=== PATIENT | male | born 1990 | race Caucasian/White ===

== ENCOUNTER 2018-07-20 19:42 | Inpatient (IN) | payer BC, OTHER ==
[~2018-07-20] VITALS: Ht 182.9 cm; Wt 119.7 kg
[~2018-07-20 19:42] MED LIST: ACYC-57 PO; AZIT500V2 PO; HYDR-3653 PO; IBUP-1222 PO; ONDA4TAB10 PO
--- NOTE | 2018-07-20 20:20 | NUR ---
ASSUMED CARE OF PT. PT PRESENTS TO ED WITH C/O SEVERE NECK PAIN, GENERALIZED BODY ACHES, AND SOME NAUSEA STARTING YESTERDAY. PT STATES HISTORY MENINGITIS IN 2014 AND STATES SYMPTOMS FEEL SIMILAR. MILD AMOUNT OF DISCOMFORT AND DISTRESS NOTED. BREATHING REGULAR AND UNLABORED. POC DISCUSSED. PT AGREEABLE.
[2018-07-20 20:25] LABS: BASOPHILS # (AUTO) 0.05 x10^3/uL (0-0.1); BASOPHILS % (AUTO) 0 % (0-1); EOSINOPHILS # (AUTO) 0.14 x10^3/uL (0-0.4); EOSINOPHILS % (AUTO) 1 % (1-7); LYMPHOCYTES % (AUTO) 26 % (22-44); MD NO; MEAN CORPUSCULAR HEMOGLOBIN 31.3 pg (27.5-34.5); MEAN CORPUSCULAR HGB CONC 34.5 g/dL (33.2-36.2); MEAN CORPUSCULAR VOLUME 90.5 fL (81-97); MONOCYTES # (AUTO) 0.74 x10^3/uL (0.2-0.8); MONOCYTES % (AUTO) 6 % (2-9); NEUTROPHILS # (AUTO) 7.67 x10^3/uL (1.8-6.8); NEUTROPHILS % (AUTO) 66 % (42-75); PLATELET COUNT 246 x10^3/uL (130-400); RED BLOOD COUNT 5.37 x10^6/uL (4.38-5.82); RED CELL DISTRIBUTION WIDTH 12.7 % (9.4-14.8)
[2018-07-20] MEDS ORDERED: SODIUM CHLORIDE FLUSH 10ML SYR IVF ONE (20:30)
[2018-07-20] MEDS ORDERED: ONDANSETRON 2MG/ML, 2ML IVPush ONE (20:30)
[2018-07-20 20:34] LABS: ALANINE AMINOTRANSFERASE 72 U/L (12-78); ANION GAP 8 mmol/L (5-15); CHLORIDE 109 mmol/L (98-107); CREATININE 0.92 mg/dL (0.7-1.3)
[2018-07-20 20:38] LABS: ALKALINE PHOSPHATASE 71 U/L (45-117); BILIRUBIN,TOTAL 0.3 mg/dL (0.2-1.0); TOTAL PROTEIN 7.9 g/dL (6.4-8.2); TROPONIN I < 0.015 ng/mL (0.000-0.045)
--- NOTE | 2018-07-20 20:48 | NUR ---
TIME CLERK STUDENT UNABLE TO START IV. PT TO CT VIA GURNEY. IV TO BE STARTED AFTER.
[2018-07-20] MEDS ORDERED: MORPHINE SULFATE 4 MG/ML, 1ML ONE ×2 (21:14→22:34)
[2018-07-20] MEDS ORDERED: ONDANSETRON 2MG/ML, 2ML ONE (21:14)
[2018-07-20] MEDS ORDERED: LIDOCAINE-MPF 1%, 5ML ONE (21:15)
[2018-07-20] MEDS: MORPHINE SULFATE 4 MG/ML, 1ML IVPush PRN ×2 (21:17→22:38)
--- NOTE | 2018-07-20 21:31 | NUR ---
CONSENT OBTAINED FROM PT FOR LUMBAR PUNCTURE DUE TO HISTORY OF MENINGITIS AND SYMPTOMS. PT TOLERATED PROCEDURE WELL. PT VSS AND NOW LAYNIG FLAT.
[2018-07-20 22:05] LABS: GLUCOSE, CSF 43 mg/dL (40-80)
[2018-07-20 22:10] LABS: TOTAL PROTEIN,CSF 91 mg/dL (15-45)
[2018-07-20] MEDS ORDERED: SODIUM CHLORIDE 0.9% IV SCH (22:30)
[2018-07-20] MEDS ORDERED: CEFTRIAXONE PMX 2GM/50ML 50 ML IV SCH (22:30)
[2018-07-20] MEDS ORDERED: VANCOMYCIN PER PHARMACY MC PRN ×2 (22:30→23:30)
[2018-07-20] MEDS ORDERED: ACYCLOVIR IV SCH (22:30)
[2018-07-20] MEDS ORDERED: CEFTRIAXONE PMX 2GM/50ML 50 ML ONE (22:42)
[2018-07-20] MEDS ORDERED: VANCOMYCIN 2,500 MG in SODIUM CHLORIDE 0.9% 500 ML IV ONE (23:00)
[2018-07-20] MEDS ORDERED: POLYETHYLENE GLYCOL 17 GM PACKET PO PRN (23:30)
[2018-07-20] MEDS ORDERED: ONDANSETRON ODT 4 MG PO PRN (23:30)
[2018-07-20] MEDS ORDERED: BISACODYL 10 MG SUPP PR PRN (23:30)
[2018-07-21] MEDS: SODIUM CHLORIDE FLUSH 10ML SYR IVF SCH ×3 (00:13→21:22)
[2018-07-21 00:20] VITALS: BP 136/87
[2018-07-21] MEDS: ACETAMINOPHEN 325 MG TABLET PO PRN ×3 (01:09→21:57)
[2018-07-21] MEDS: SODIUM CHLORIDE 0.9% IV SCH ×3 (01:11→18:13)
[2018-07-21] MEDS: ACYCLOVIR IV SCH ×3 (01:11→18:13)
[2018-07-21 01:30] LABS: MICROSCOPIC NOT IND
[2018-07-21 01:33] LABS: CULTURE INDICATED? NO
[2018-07-21 05:06] LABS: BASOPHILS # (AUTO) 0.03 x10^3/uL (0-0.1); BASOPHILS % (AUTO) 0 % (0-1); EOSINOPHILS # (AUTO) 0.07 x10^3/uL (0-0.4); EOSINOPHILS % (AUTO) 1 % (1-7); LYMPHOCYTES # (AUTO) 3.09 x10^3/uL (1-3.4); LYMPHOCYTES % (AUTO) 26 % (22-44); MD NO; MEAN CORPUSCULAR HEMOGLOBIN 31.2 pg (27.5-34.5); MEAN CORPUSCULAR HGB CONC 34.6 g/dL (33.2-36.2); MEAN CORPUSCULAR VOLUME 90.2 fL (81-97); MEAN PLATELET VOLUME 8.8 fL (7.4-10.4); MONOCYTES # (AUTO) 0.67 x10^3/uL (0.2-0.8); MONOCYTES % (AUTO) 6 % (2-9); NEUTROPHILS % (AUTO) 68 % (42-75); PLATELET COUNT 228 x10^3/uL (130-400); RED BLOOD COUNT 5.05 x10^6/uL (4.38-5.82); RED CELL DISTRIBUTION WIDTH 12.8 % (9.4-14.8)
[2018-07-21 05:14] LABS: ALBUMIN 3.5 g/dL (3.4-5.0); ANION GAP 6 mmol/L (5-15); CALCIUM 8.5 mg/dL (8.5-10.1); CHLORIDE 110 mmol/L (98-107)
[2018-07-21 05:19] LABS: ALANINE AMINOTRANSFERASE 61 U/L (12-78); ALKALINE PHOSPHATASE 62 U/L (45-117); BILIRUBIN,TOTAL 0.5 mg/dL (0.2-1.0); CREATININE 0.82 mg/dL (0.7-1.3); TOTAL PROTEIN 7.4 g/dL (6.4-8.2)
[2018-07-21] MEDS ORDERED: PHARMACOKINETIC CONSULTATION MC ONE (05:30)
[2018-07-21] MEDS ORDERED: PHARMACOKINETIC MONITORING MC PRN (05:30)
[2018-07-21] MEDS ORDERED: VANCOMYCIN 1,800 MG in SODIUM CHLORIDE 0.9% 250 ML IV SCH (08:00)
[2018-07-21] MEDS: SENNA/DOCUSATE TABLET PO SCH (08:27)
[2018-07-21 08:59] VITALS: BP 126/80
[2018-07-21] MEDS ORDERED: CEFTRIAXONE PMX 2GM/50ML 50 ML IV SCH (11:00)
[2018-07-21 15:28] VITALS: BP 129/75
[2018-07-21 21:51] VITALS: BP 149/102
[2018-07-21 22:49] VITALS: BP 155/106
[2018-07-21] MEDS ORDERED: ENALAPRILAT 1.25 MG/ML, 2ML IV ONE (23:00)
[2018-07-21 23:53] VITALS: BP 120/76
[2018-07-22] MEDS: ACYCLOVIR IV SCH ×3 (01:54→18:11)
[2018-07-22] MEDS: SODIUM CHLORIDE 0.9% IV SCH ×3 (01:54→18:11)
[2018-07-22 02:52] VITALS: BP 108/70
[2018-07-22 06:02] LABS: MEAN CORPUSCULAR HEMOGLOBIN 31.3 pg (27.5-34.5); MEAN CORPUSCULAR HGB CONC 34.7 g/dL (33.2-36.2); MEAN CORPUSCULAR VOLUME 90.1 fL (81-97); MEAN PLATELET VOLUME 8.8 fL (7.4-10.4); PLATELET COUNT 210 x10^3/uL (130-400); RED BLOOD COUNT 4.91 x10^6/uL (4.38-5.82); RED CELL DISTRIBUTION WIDTH 12.7 % (9.4-14.8)
[2018-07-22 06:07] LABS: ALBUMIN 3.4 g/dL (3.4-5.0); ANION GAP 4 mmol/L (5-15); CALCIUM 8.5 mg/dL (8.5-10.1); CHLORIDE 115 mmol/L (98-107)
[2018-07-22 06:10] LABS: ALANINE AMINOTRANSFERASE 55 U/L (12-78); ALKALINE PHOSPHATASE 60 U/L (45-117); BILIRUBIN,TOTAL 0.3 mg/dL (0.2-1.0); CREATININE 0.73 mg/dL (0.7-1.3); TOTAL PROTEIN 6.8 g/dL (6.4-8.2)
[2018-07-22 06:24] LABS: BASOPHILS # (AUTO) 0.04 x10^3/uL (0-0.1); BASOPHILS % (AUTO) 1 % (0-1); EOSINOPHILS % (AUTO) 4 % (1-7); LYMPHOCYTES # (AUTO) 3.64 x10^3/uL (1-3.4); LYMPHOCYTES % (AUTO) 44 % (22-44); MD SCAN; MONOCYTES % (AUTO) 10 % (2-9); NEUTROPHILS # (AUTO) 3.46 x10^3/uL (1.8-6.8); NEUTROPHILS % (AUTO) 42 % (42-75)
[2018-07-22 08:00] VITALS: BP 137/86
[2018-07-22] MEDS: SENNA/DOCUSATE TABLET PO SCH (10:18)
[2018-07-22] MEDS: ACETAMINOPHEN 325 MG TABLET PO PRN (10:19)
[2018-07-22] MEDS: SODIUM CHLORIDE FLUSH 10ML SYR IVF SCH ×2 (10:25→20:10)
[2018-07-22] MEDS: SODIUM CHLORIDE 0.45% 1,000 ML IV SCH ×2 (11:36→23:53)
[2018-07-22 15:00] VITALS: BP 127/80
[2018-07-22 19:10] VITALS: BP 124/78
[2018-07-23 00:48] VITALS: BP 136/89
[2018-07-23] MEDS: ACYCLOVIR IV SCH ×2 (01:56→10:14)
[2018-07-23] MEDS: SODIUM CHLORIDE 0.9% IV SCH ×2 (01:56→10:14)
[2018-07-23 08:05] VITALS: BP 144/96
[2018-07-23] MEDS: SENNA/DOCUSATE TABLET PO SCH (09:00)
[2018-07-23] MEDS: SODIUM CHLORIDE FLUSH 10ML SYR IVF SCH (10:14)
[2018-07-23 10:31] LABS: ANION GAP 5 mmol/L (5-15); CALCIUM 8.6 mg/dL (8.5-10.1); CHLORIDE 113 mmol/L (98-107); CREATININE 0.65 mg/dL (0.7-1.3)
[2018-07-23] MEDS ORDERED: VALA1000 PO ×3 (12:13→16:37)
== END 2018-07-23 13:59 | disposition home or self-care (01) | DRG 76 ==
LOC: ED 22:02 → EDIP 22:31 → 3NE 07-21 00:24 → DCLOUNGE 07-23 13:44
PROVIDERS: ADMIT Internal Medicine; ATTEND Internal Medicine
PROC: 009U3ZX Drainage of Spinal Canal, Percutaneous Approach, Diagnostic (ICD-10-PCS; principal; 2018-07-20)
DX: B00.3 Herpesviral meningitis (principal); E78.5 Hyperlipidemia, unspecified; F17.210 Nicotine dependence, cigarettes, uncomplicated; I10 Essential (primary) hypertension; Z82.49 Family history of ischemic heart disease and other diseases of the circulatory system; Z83.3 Family history of diabetes mellitus; Z86.61 Personal history of infections of the central nervous system; Z87.81 Personal history of (healed) traumatic fracture
CPT/HCPCS: 36415; 70450; 71046; 80048; 80053; 81003; 82945; 83605; 83690; 83735; 84100; 84157; 84484; 85025; 86788; 86789; 86803; 87040; 87070; 87205; 87252; 87496; 87529; 89051; 93005; 96374; 96375; 99285; G0378; J0133; J0696; J2405; J3370; J7040; J7050